=== PATIENT | male | born 1990 | race Caucasian/White ===

== ENCOUNTER 2023-07-18 06:38 | Emergency (ER) | payer BC, SELFPAY ==
--- NOTE | 2023-07-18 06:45 | ECG_ITS ---
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 Measurements Intervals [place] Rate: 81 P: 62 HI: 134 QRS: 24 QRSD: 93 T: 30 QT: 379 QTc: 442 Interpretive Statements SINUS RHYTHM WITH SINUS ARRHYTHMIA No previous ECG available for comparison Electronically Signed On 07-18-2023 19:23:18 CDT by Antonio Tao M.D. [email or web address] [id number] f
[2023-07-18 06:49] VITALS: BP 144/94; PULSE 88; RESP 18; TEMP 36.8; O2SAT 100; BMI 27.3
--- NOTE | 2023-07-18 07:03 | XRR_ITS ---
PROCEDURE INFORMATION: Exam: XR Left Wrist Exam date and time: 07/18/2023 7:07 AM Age: 33 years old Clinical indication: Pain; Lower or forearm; Prior surgery; Surgery date: 6+ months; Surgery type: Left elbow 4 years ago TECHNIQUE: Imaging protocol: Radiologic exam of the left wrist. Views: 3 or more views. Total images: 3 COMPARISON: No relevant prior studies available. FINDINGS: Bones/joints: Normal. Soft tissues: Normal. XR/XR wrist LT min 3V* [id number] IMPRESSION: No acute findings.
--- NOTE | 2023-07-18 07:03 | XRR_ITS ---
PROCEDURE INFORMATION: Exam: XR Left Elbow Exam date and time: 07/18/2023 7:07 AM Age: 33 years old Clinical indication: Pain; Lower or forearm; Prior surgery; Surgery date: 6+ months; Surgery type: Left elbow 4 years ago TECHNIQUE: Imaging protocol: Radiologic exam of the left elbow. Views: 3 or more views. Total images: 1 COMPARISON: CR (UP EXM, ) 07/18/2023 7:07 AM FINDINGS: Tubes, catheters and devices: The prosthesis appears near anatomic in positioning. No parallel lucencies adjacent to the prosthesis are seen to suggest loosening. No acute fractures, subluxation, nor dislocation. Bones/joints: Radial head prosthesis. Small osteophytes along the lateral epicondyle and trochlear groove. No acute fracture nor subluxation. No osseous erosion nor periosteal reaction. Soft tissues: Soft tissue anchor in the lateral epicondyle area. XR/XR elbow LT min 3V* [id number] IMPRESSION: No acute osseous pathology.
--- NOTE | 2023-07-18 07:05 | ED_ITS ---
HPI - Extremity Problem General: Chief complaint: Extremity Problem,Nontraumatic Stated complaint: left arm pain Time Seen by Provider: 07/18/23 06:48 Source: patient Mode of arrival: ambulatory History of Present Illness: 33-year-old male presents emergency room with complaints of elbow pain and forearm pain on the left arm. 4 years ago he had a surgery Starting yesterday began he had surgery for his most of his hand and midshaft of the left forearm gets worse when he tries to extend it passive range of motion with pronation and supination patient has pain. No recent trauma or injury or fall. Feels like his difficult time gripping objects because of the discomfort. He has not really taken anything for it he does not recall anything that seem to precipitate it. MD Complaint: joint pain Onset (ago): day(s) (1) Pain Consistency: constant Location: left, upper extremity and elbow Quality: sharp Radiation: distal Relieving factors: rest Exacerbating factors: range of motion and palpation Associated symptoms: Deny chest pain, fever(s), myalgias, rash or short of breath Review of Systems Const: Denies: fever(s) Card: Denies: chest pain Resp: Denies: dyspnea GI: Denies: abdominal pain : Denies: dysuria, urinary frequency or urinary urgency Musc: Denies: neck pain or back pain Skin/Breast: Denies: rash Physical Exam Const: COMMON NORMALS: no acute distress GENERAL APPEARANCE: cooperative and comfortable ORIENTATION/CONSCIOUSNESS: Yes awake, Yes oriented to person, Yes oriented to place and Yes oriented to time HENMT: COMMON NORMALS: normocephalic, atraumatic and hearing grossly normal bilaterally HEAD & SCALP: normocephalic and atraumatic Resp: COMMON NORMALS: normal respiratory effort Extremity: COMMON NORMALS: capillary refill normal and no clubbing, cyanosis or edema OTHER: Examination left hand and arm neurovascularly intact pain in the midshaft of the forearm pain with attempted flexion extension of the elbow with passive range of motion and with pronation and supination neurologically intact radial ulnar pulses are normal Neuro: SENSORIUM/ORIENTATION: Yes oriented to person, Yes oriented to place and Yes oriented to time Skin: COMMON NORMALS: no rashes or lesions noted GENERAL SKIN EXAM: no rashes or lesions noted Course Vital Signs: Vital signs: Vital Signs Temperature 98.2 F 07/18/23 06:49 Pulse Rate 88 07/18/23 06:49 Respiratory Rate 18 07/18/23 06:49 Blood Pressure 144/94 07/18/23 06:49 Pulse Oximetry 100 07/18/23 06:49 Oxygen Delivery Me thod Room Air 07/18/23 06:49 MDM - Extremity (Nontraumatic) Medical Decision Making X-rays show a left radial head prosthesis appears to be somewhat loosened. No joint effusion. There appears to be an old fracture of the coracoid process that is nonimmunized. Place patient in sling diclofenac as needed minimal use of the left arm follow-up with orthopedics Medical Records I reviewed the patient's medical records. All radiology interpretation(s) finalized by discharge Discharge Plan Discharge Patient Disposition: Home Clinical Impression: Arthralgia of elbow, left Condition: Stable Prescriptions: New diclofenac sodium 75 mg tablet,delayed release (DR/EC) 75 mg PO Q12H PRN (Reason: pain) Qty: 20 0RF No Action amitriptyline 10 mg tablet 10 mg PO DAILY cyclobenzaprine 7.5 mg tablet 7.5 mg PO TID PRN (Reason: muscle spasm) Qty: 20 0RF Discharge Orders: Discharge ED (Routine); Ordered 07/18/23 Ordered By: Steven Lei Discharge Diet: Usual diet Discharge Activity: Increase activity as tolerated Patient Instructions: Opioid Safety, Pain Management Activity Restrictions/Additional Instructions: Thank you for choosing [facility] for your healthcare needs today. Please realize this is an emergency room and that we are providing you with a medical screening exam and this may not be complete and all inclusive of all the testing and or work up that you may need to determine your ailment or severity of your illness. It is very important that you follow up as instructed or that you return to the Emergency Department should you have concerns or if your condition changes or worsens in any way. Her outpatient case manager will make arrangements for her to follow-up with orthopedics. Use the left arm sling and diclofenac until then. Coding Level of Care Code ED [employer] Terminal Operator for Laura Taylor
[2023-07-18] MEDS: ketorolac 60 mg/2 mL INJ IM (07:14)
--- NOTE | 2023-07-18 07:33 | DCPLANNER ---
Message sent to Ortho for Referral of Elbow forearm pain.
== END 2023-07-18 07:39 | disposition home or self-care (01) ==
PROVIDERS: Emergency Provider Family Medicine
DX: M25.522 Pain in left elbow (principal)
CPT/HCPCS: 73080; 73110; 93005; 96372; 99284; J1885